=== PATIENT | male | born 1960 | race Caucasian/White ===

== ENCOUNTER → 2023-11-12 10:06 | Outpatient (REF) | payer OTHER, SELFPAY | LOC: RCS 10:06 | PROVIDERS: ATTENDING PHYSICIAN Family Medicine; FAMILY PHYSICIAN Physician Assistant Medical | DX: R94.31 Abnormal electrocardiogram [ECG] [EKG] (principal); I10 Essential (primary) hypertension | CPT/HCPCS: 93306 ==

== ENCOUNTER 2023-12-01 06:14 | Day surgery (SDC) | payer OTHER, MEDICAID, SELFPAY ==
[2023-12-01] VITALS (8 sets, daily range): BP systolic 94–121; BP diastolic 62–70; BMI 30.7
--- NOTE | 2023-12-01 09:09 | W.SUR.PREOP ---
Pre-Operative Surgical Note
-
I have examined this patient prior to the performance of the scheduled procedure.
The patient's condition is unchanged from the time of the current History and
Physical and the patient is able to undergo the scheduled procedure.
[2023-12-01] MEDS: TYLENOL 1000 MG PO (09:14)
[2023-12-01] MEDS: NORMOSOL-R 1000 IV (09:14)
--- NOTE | 2023-12-01 10:52 | W.IMMPOSTOP ---
Surgical Immed Post Op Note
-
Primary Surgeon: Guillermo Dowell MD
Assisting Surgeon: None
Pre-op Diagnosis: Left inguinal hernia
Post-op Diagnosis: Same
Procedure Performed: Robotic left inguinal hernia repair with mesh.
Anesthesia Type: General
Specimen / Cultures: None
Estimated Blood Loss: 3 cc
Complications: None
Operative Findings: Moderate sized to indirect inguinal hernia. No direct or femoral components. A small retroperitoneal cord lipoma was identified and reduced but not resected. The floor was reinforced with a large left Bard 3D max mid weight
mesh.
POST OP PLAN:
Will discharge after voiding.
--- NOTE | 2023-12-01 10:53 | OR.RPT ---
Operative Report
Operative Report
Patient Name: Shahriar Lawrence
: 1960
Date of Operation: 12/01/2023
Preoperative Diagnosis: Reducible Inguinal hernia, left
Postoperative Diagnosis: Same
Procedure(s):
Robotic Inguinal Hernia Repair with mesh, (TAYLOR approach)
Surgeon(s):
Dr. Dowell
Medical Office Technologist(s):
RALPH Vaughan
Anesthesia: General
Estimated Blood Loss: 3 cc
Urine Output: None
Drains/Lines/Implants: Large 3D Max Bard mid weight mesh
Specimens: None
Indication for surgery: The patient has a history of groin pain and noted on exam to have a Left inguinal Hernia. Following review of therapeutic options they has elected to undergo a minimally invasive repair.
Operative Findings: Moderate sized indirect inguinal hernia. No direct or femoral components. A small retroperitoneal cord lipoma was identified and reduced but not resected. The floor was reinforced with a large left Bard 3D max mid weight mesh.
Details of the operation:
The patient was brought to the Operating Room and placed in the supine position with the arms tucked. IV antibiotics were infused and Venodyne stockings placed. Following uneventful induction of general endotracheal anesthesia, an orogastric tube
were placed. The abdomen was prepped and draped in the usual sterile fashion. The abdomen was entered using a Veress technique which required 1 pass, pneumoperitoneum to 15 mmHg was obtained without difficulty. A 8mm trochar was passed through the
abdominal wall roughly 20 cm cephalad to the inguinal canal. We then confirmed that no inadvertent injury was made while passing the trocar or Veress needle. We then placed two additional 8 mm ports in the left upper and right upper quadrants. We
then docked the robot with a Prograsper in the left hand port and monopolar scissors in the right. A moderate-sized left indirect inguinal hernia was noted, no defect was noted on the right. We could clearly identify the iliac pulsating indicating
that the peritoneal flap was going to be quite thin. We then began by creating a peritoneal flap at the level of the ASIS laterally working our way medially to the medial umbilical fold. Staying onto the peritoneum we were able to
circumferentially dissect around the hernia sac and and peel it off of the underlying spermatic cord and testicular vessels, taking care to preserve them. Medially we identified the midline pubis as well as Junior's ligament and ensured to dissect
2 cm below the pubic rim over the bladder. After exposure of the entire myopectineal orifice we identified and reduced: A medium sized indirect inguinal hernia, no direct inguinal hernia, no femoral hernia, a medium cord lipoma which appeared to be
coming from the retroperitoneum this was reduced but not resected.
We then fixated a large 3D max mesh with a 2-0 Vicryl stitch at coopers medially and ensured that the lipoma would sneak past the mesh. The flap was then closed with a running 2-0 barbed monocryl suture ensuring that the tail was cut flush with the
medial fat pad so that no barbs were exposed. During the closure of the flap a suction cannula was inserted and 20 cc of quarter percent Marcaine was instilled. The area in the flap cavity was then evacuated of air confirming that the mesh was
flush and there were no folds. No rent in the peritoneal flap was noted. All needles and instruments were then removed and the robot was undocked. The abdomen was then desufflated, and pneumoperitoneum evacuated. All skin sites were then closed
with 4-0 Monocryl followed by Dermabond. Counts were correct and overall, the patient tolerated the procedure well and was taken to the Recovery Room postoperatively in stable condition.
I was the attending physician and performed the procedure with assistance of the PA above. The assistance of RALPH Vaughan was required due to the complexity of the procedure. During the procedure Radha assisted with retraction, resection, passing
needles/mesh, exchanging instruments and closure of the wound. I was present for all portions of the case excluding port closure.
Guillermo Dowell MD
[2023-12-01] MEDS: DILAUDID 0.25 MG IV (11:24)
[2023-12-01] MEDS: MOTRIN 600 MG PO (12:46)
== END 2023-12-01 13:15 | disposition home or self-care (01) ==
LOC: SDS 06:14
PROVIDERS: ATTENDING PHYSICIAN Surgery
DX: K40.90 Unilateral inguinal hernia, without obstruction or gangrene, not specified as recurrent (principal)
CPT/HCPCS: 49650; C1781

== ENCOUNTER → 2024-02-14 10:17 | Outpatient (REF) | payer OTHER, MEDICAID, SELFPAY | LOC: MRI 3T 10:17 | PROVIDERS: ATTENDING PHYSICIAN Specialist; FAMILY PHYSICIAN Physician Assistant Medical | DX: R97.20 Elevated prostate specific antigen [PSA] (principal) | CPT/HCPCS: 72197; A9575 ==